=== PATIENT | female | born 1985 | race Caucasian/White ===

== ENCOUNTER 2021-04-22 17:49 | Emergency (ER) | payer OTHER ==
[2021-04-22 18:21] LABS: BASOPHIL 0.5 % (0-2); EOSINOPHIL 1.6 % (0-5); HCT 35.2 % (37.0-47.0); HGB 11.7 g/dl (12.5-16.0); LYMPHOCYTE 31.6 % (15-48); MCH 31.5 pg (25.0-31.0); MCHC 33.2 g/dL (32.0-36.0); MCV 94.6 fL (78.0-100.0); MONOCYTE 6.9 % (0-12); MPV 9.6 fL (6.0-9.5); NEUTROPHIL 59.1 % (41-80); NRBC 0; PLT 292 K/uL (150-400); RBC 3.72 M/uL (4.20-5.40); RDW 13.2 % (11.5-14.0); WBC 11.2 K/uL (4.0-10.5)
[2021-04-22 18:41] LABS: BUN/CREAT RATIO (CALC) 18.8 RATIO; CREATININE 0.69 mg/dL (0.51-0.95); POTASSIUM 3.3 mmol/L (3.5-5.1)
[2021-04-22 20:03] LABS: BILIRUBIN NEGATIVE (NEGATIVE); BLOOD 3+ Ery/uL (NEGATIVE); CLARITY CLOUDY (CLEAR); COLOR RED (YELLOW); GLUCOSE (U) NORMAL (NORMAL); LEUKOCYTES TRACE Leu/uL (NEGATIVE); NITRITE NEGATIVE (NEGATIVE); PROTEIN 1+ mg/dL (NEGATIVE); SPECIFIC GRAVITY <=1.005 (1.001-1.030); UROBILINOGEN 0.2 mg/dL (0.2-1.0)
[2021-04-22 20:15] LABS: BACTERIA 1+; URINARY RBC TNTC
[2021-04-22] MEDS ORDERED: METHYLERGONOVI0.2 MG PO ×2 (20:31→20:40)
== END 2021-04-22 21:11 | disposition home or self-care (01) ==
LOC: FER 17:49
PROVIDERS: Nurse Practitioner Family
DX: O72.2 Delayed and secondary postpartum hemorrhage (principal); Z88.1 Allergy status to other antibiotic agents; Z88.2 Allergy status to sulfonamides
CPT/HCPCS: 36415; 76830; 80048; 81001; 84702; 85025; 86850; 86900; 86901; J2210; J7030

== ENCOUNTER 2021-04-22 23:30 | Day surgery (SDCO) | payer OTHER ==
[~2021-04-22 23:30] MED LIST: METHYLERGONOVI0.2 MG PO
[2021-04-22 23:56] LABS: BASOPHIL 0.5 % (0-2); EOSINOPHIL 0.4 % (0-5); HCT 34.2 % (37.0-47.0); HGB 11.3 g/dl (12.5-16.0); LYMPHOCYTE 23.3 % (15-48); MCH 31.5 pg (25.0-31.0); MCV 95.3 fL (78.0-100.0); MONOCYTE 4.4 % (0-12); MPV 9.8 fL (6.0-9.5); NEUTROPHIL 71.1 % (41-80); NRBC 0; PLT 337 K/uL (150-400); RBC 3.59 M/uL (4.20-5.40); RDW 13.4 % (11.5-14.0); WBC 12.8 K/uL (4.0-10.5)
[2021-04-23 00:01] LABS: INR 1.22 (0.9-1.2); PROTHROMBIN TIME 14.8 SECONDS (11.8-13.4); PTT 32.6 SECONDS (24.4-34.7)
[2021-04-23 04:37] LABS: HCT 27.7 % (37.0-47.0); HGB 9.1 g/dl (12.5-16.0); MCH 31.2 pg (25.0-31.0); MCHC 32.9 g/dL (32.0-36.0); MCV 94.9 fL (78.0-100.0); RBC 2.92 M/uL (4.20-5.40); RDW 13.7 % (11.5-14.0); WBC 11.8 K/uL (4.0-10.5)
[2021-04-23 04:48] LABS: INR 1.34 (0.9-1.2); PROTHROMBIN TIME 15.9 SECONDS (11.8-13.4); PTT 23.7 SECONDS (24.4-34.7)
[2021-04-23 08:04] LABS: HCT 27.6 % (37.0-47.0); HGB 9.3 g/dl (12.5-16.0); MCHC 33.7 g/dL (32.0-36.0); MPV 9.8 fL (6.0-9.5); RDW 14.2 % (11.5-14.0); WBC 11.2 K/uL (4.0-10.5)
[2021-04-23 08:20] LABS: INR 1.32 (0.9-1.2); PROTHROMBIN TIME 15.7 SECONDS (11.8-13.4)
[2021-04-23 16:30] LABS: HGB 8.7 g/dl (12.5-16.0); MCH 30.9 pg (25.0-31.0); MCHC 33.5 g/dL (32.0-36.0); MCV 92.2 fL (78.0-100.0); MPV 9.9 fL (6.0-9.5); RBC 2.82 M/uL (4.20-5.40); RDW 14.6 % (11.5-14.0); WBC 9.5 K/uL (4.0-10.5)
[2021-04-23 16:37] LABS: INR 1.21 (0.9-1.2); PROTHROMBIN TIME 14.7 SECONDS (11.8-13.4); PTT 28.6 SECONDS (24.4-34.7)
[2021-04-24 06:51] LABS: HCT 23.1 % (37.0-47.0); HGB 7.7 g/dl (12.5-16.0); MCH 30.7 pg (25.0-31.0); MCHC 33.3 g/dL (32.0-36.0); MPV 9.6 fL (6.0-9.5); RBC 2.51 M/uL (4.20-5.40); RDW 14.6 % (11.5-14.0); WBC 6.9 K/uL (4.0-10.5)
[2021-04-24 07:13] LABS: INR 1.21 (0.9-1.2); PROTHROMBIN TIME 14.7 SECONDS (11.8-13.4); PTT 29.7 SECONDS (24.4-34.7)
[2021-04-24 18:43] LABS: HCT 31.2 % (37.0-47.0); MCH 30.8 pg (25.0-31.0); MCV 90.7 fL (78.0-100.0); MPV 9.8 fL (6.0-9.5); RBC 3.44 M/uL (4.20-5.40); RDW 14.8 % (11.5-14.0); WBC 8.6 K/uL (4.0-10.5)
[2021-04-24 18:49] LABS: HGB 10.6 g/dl (12.5-16.0)
[2021-04-24 19:00] LABS: INR 1.13 (0.9-1.2); PROTHROMBIN TIME 13.9 SECONDS (11.8-13.4); PTT 28.3 SECONDS (24.4-34.7)
== END 2021-04-24 19:22 | disposition home or self-care (01) ==
LOC: FER 23:30 → FOB 04-23 01:13 → FAS 04-23 02:45 → FOB 04-23 02:50
PROVIDERS: Emergency Medicine; ADMIT Obstetrics & Gynecology
DX: O72.2 Delayed and secondary postpartum hemorrhage (principal); K21.9 Gastro-esophageal reflux disease without esophagitis; J45.909 Unspecified asthma, uncomplicated; D50.0 Iron deficiency anemia secondary to blood loss (chronic)
CPT/HCPCS: 36415; 36430; 85025; 85384; 85610; 85730; 86850; 86900; 86901; 86922; G0378; J1200; J2210; J2250; J2405; J2590; J2704; J3010; J7050; J7120; P9016; U0002

== ENCOUNTER 2021-10-25 09:50 | Emergency (ER) | payer OTHER ==
[2021-10-25 11:28] LABS: BILIRUBIN NEGATIVE (NEGATIVE); BLOOD TRACE-INTACT Ery/uL (NEGATIVE); CLARITY CLEAR (CLEAR); COLOR YELLOW (YELLOW); GLUCOSE (U) NORMAL (NORMAL); LEUKOCYTES NEGATIVE Leu/uL (NEGATIVE); NITRITE NEGATIVE (NEGATIVE); PROTEIN NEGATIVE (NEGATIVE); UROBILINOGEN 0.2 mg/dL (0.2-1.0)
[2021-10-25 11:45] LABS: IRON % SATURATION 57.8 %SAT (20-50)
[2021-10-25 11:47] LABS: BASOPHIL 0.4 % (0-2); EOSINOPHIL 0.2 % (0-5); HGB 14.7 g/dl (12.5-16.0); LYMPHOCYTE 14.7 % (15-48); MCH 30.9 pg (25.0-31.0); MCHC 33.4 g/dL (32.0-36.0); MCV 92.6 fL (78.0-100.0); MONOCYTE 4.6 % (0-12); MPV 10.2 fL (6.0-9.5); NEUTROPHIL 79.7 % (41-80); NRBC 0; PLT 285 K/uL (150-400); RBC 4.75 M/uL (4.20-5.40); RDW 12.6 % (11.5-14.0); WBC 12.2 K/uL (4.0-10.5)
[2021-10-25 11:47] LABS: BACTERIA TRACE; URINARY RBC RARE; URINARY WBC RARE
[2021-10-25 12:11] LABS: ALBUMIN 3.8 g/dL (3.4-5.0); ALKALINE PHOSHATASE 38 U/L (46-116); ALT 20 U/L (14-59); AST 13 U/L (15-37); BILIRUBIN - TOTAL 1.4 mg/dL (0.2-1.0); BUN 14 mg/dL (7-18); BUN/CREAT RATIO (CALC) 22.6 RATIO; CHLORIDE 102 mmol/L (98-107); CO2 (BICARBONATE) 26 mmol/L (21-32); CREATININE 0.62 mg/dL (0.51-0.95); GLOBULIN (CALCULATION) 3.1 g/dL; GLUCOSE 95 mg/dL (74-106); LDH 148 U/L (81-234); MAGNESIUM 1.8 mg/dL (1.8-2.4); POTASSIUM 3.5 mmol/L (3.5-5.1); TOTAL PROTEIN 6.9 g/dL (6.4-8.2)
[2021-10-25 12:13] LABS: C-REACTIVE PROTEIN < 0.20 mg/dL (<=0.90)
[2021-10-25] MEDS ORDERED: VIBRAMYCIN100 MG PO (12:54)
== END 2021-10-25 13:03 | disposition home or self-care (01) ==
LOC: FER 09:50
PROVIDERS: Emergency Medicine
DX: R00.2 Palpitations (principal); J32.9 Chronic sinusitis, unspecified; Z28.310 Unvaccinated for COVID-19; Z88.1 Allergy status to other antibiotic agents
CPT/HCPCS: 36415; 80053; 81001; 82728; 83540; 83550; 83605; 83615; 83735; 84145; 84439; 84484; 84703; 85025; 85379; 86140; 93005; J7030